=== PATIENT | male | born 1955 | race Caucasian/White ===

== ENCOUNTER 2017-09-04 21:15 | Inpatient (IN) ==
[2017-09-04] MEDS ORDERED: SODIUM CHLORIDE 0.9% 1,000 ML IV STA (22:14)
[2017-09-04] MEDS ORDERED: ONDANSETRON 4 MG/2 ML VIAL IV STA (22:14)
[2017-09-04 23:19] LABS: Basophils % 0.2 % (0.0-0.8); Eosinophils % 0.1 % (0.00-10.9); Hematocrit 35.1 VOL% (42.0-52.0); Hemoglobin 11.2 GM/DL (14.0-18.0); Immature Granulocytes % 0.5 %; Immature Granulocytes Absolute 0.08 #; Lymphocytes # 0.9 10*3/uL (1.4-4.0); Lymphocytes % 5.6 % (21.2-54.2); Mean Corpuscular HGB Conc 31.9 GM/DL (32-36); Mean Corpuscular Hemoglobin 32 PG (27-34); Mean Corpuscular Volume 99.7 FL (87-102); Mean Platelet Volume 10.9 FL (9.6-12.0); Monocytes # 0.9 10*3/uL (0.11-0.8); Monocytes % 5.9 % (1.7-12.7); Neutrophils # 13.3 10*3/uL (1.4-7.4); Neutrophils % 87.7 % (38.7-73.9); Platelet Count 100 T/CUMM (130-400); Red Blood Count 3.52 MC/CUMM (3.8-5.5); White Blood Count 15.1 T/CUMM (4-12)
[2017-09-04] MEDS ORDERED: MORPHINE 4 MG/1 ML VIAL IV STA (23:24)
[2017-09-04 23:40] LABS: Alanine Aminotransferase 41 U/L (16-61); Albumin 3.3 G/DL (3.4-5.0); Alkaline Phosphatase 119 U/L (45-117); Aspartate Amino Transferase 48 U/L (0-37); Blood Urea Nitrogen 22 MG/DL (7-18); Glucose 180 MG/DL (74-106); Osmolality,Calculated 288.3 MOS/KG (273-304); Potassium 3.5 MMOL/L (3.5-5.1); Sodium 141 MMOL/L (136-145); Total Protein 8.2 G/DL (6.4-8.3)
[2017-09-04 23:41] LABS: Lactic Acid 2.4 MMOL/L (0.4-2.0)
[2017-09-05] MEDS ORDERED: SODIUM CHLORIDE 0.9% 1,000 ML IV STA (00:04)
[2017-09-05] MEDS ORDERED: ONDANSETRON 4 MG/2 ML VIAL IV PRN (01:07)
[2017-09-05] MEDS ORDERED: MORPHINE 10 MG/1 ML VIAL IV PRN (01:11)
[2017-09-05] MEDS ORDERED: MORPHINE 4 MG/1 ML VIAL ONE (01:38)
[2017-09-05] MEDS: DEXTROSE 5% LACTATED RINGERS 1,000 ML IV SCH ×2 (02:44→19:12)
[2017-09-05 04:59] LABS: Basophils % 0.2 % (0.0-0.8); Eosinophils % 0.1 % (0.00-10.9); Hematocrit 31.3 VOL% (42.0-52.0); Immature Granulocytes % 0.4 %; Immature Granulocytes Absolute 0.05 #; Lymphocytes # 0.8 10*3/uL (1.4-4.0); Lymphocytes % 6.5 % (21.2-54.2); Mean Corpuscular HGB Conc 31.9 GM/DL (32-36); Mean Corpuscular Hemoglobin 32 PG (27-34); Mean Corpuscular Volume 99.7 FL (87-102); Mean Platelet Volume 11.1 FL (9.6-12.0); Monocytes # 0.8 10*3/uL (0.11-0.8); Monocytes % 6.1 % (1.7-12.7); Neutrophils # 11.3 10*3/uL (1.4-7.4); Neutrophils % 86.7 % (38.7-73.9); Platelet Count 86 T/CUMM (130-400); Red Blood Count 3.14 MC/CUMM (3.8-5.5); Red Cell Distribution Width 15.9 % (9.3-17.3)
[2017-09-05 05:05] LABS: INR 1.3; PT Patient Result 13.3 SECS; Partial Thromboplastin Time 25.6 SECS (0-40)
[2017-09-05 05:22] LABS: Albumin 2.8 G/DL (3.4-5.0); Bilirubin,Total 1.8 MG/DL (0.2-1.0); Calcium 8.3 MG/DL (8.5-10.1); Osmolality,Calculated 293.8 MOS/KG (273-304); Potassium 3.4 MMOL/L (3.5-5.1); Total Protein 6.7 G/DL (6.4-8.3)
[2017-09-05 05:49] LABS: Band Neutrophils 8 % (0-10); Hypochromasia 1+; Lymphocytes 3 % (20-55); Macrocytosis Slight; Segmented Neutrophils 79 % (50-85); Total Cells Counted 100
[2017-09-05 05:50] LABS: Platelet Estimate Decreased
[2017-09-05] MEDS ORDERED: POTASSIUM CHLORIDE RIDER 10 MEQ in PREMIX 1 EACH IV PRN (11:05)
[2017-09-05] MEDS: DEXT 5% NACL 0.45% KCL 40 MEQ 40 MEQ/1,000 ML BAG IV SCH ×2 (11:58→23:03)
[2017-09-05] MEDS ORDERED: POTASSIUM CHLORIDE RIDER 20 MEQ in PREMIX 1 EACH IV PRN (12:00)
[2017-09-06 06:21] LABS: Basophils % 0.3 % (0.0-0.8); Eosinophils # 0.3 10*3/uL (0.0-0.87); Hematocrit 29.1 VOL% (42.0-52.0); Hemoglobin 9.5 GM/DL (14.0-18.0); Immature Granulocytes % 0.5 %; Immature Granulocytes Absolute 0.03 #; Lymphocytes % 14.6 % (21.2-54.2); Mean Corpuscular HGB Conc 32.6 GM/DL (32-36); Mean Corpuscular Hemoglobin 32 PG (27-34); Mean Corpuscular Volume 99.3 FL (87-102); Mean Platelet Volume 10.7 FL (9.6-12.0); Monocytes # 0.6 10*3/uL (0.11-0.8); Monocytes % 8.8 % (1.7-12.7); Neutrophils # 4.7 10*3/uL (1.4-7.4); Neutrophils % 70.8 % (38.7-73.9); Platelet Count 81 T/CUMM (130-400); Red Blood Count 2.93 MC/CUMM (3.8-5.5); White Blood Count 6.6 T/CUMM (4-12)
[2017-09-06 06:45] LABS: Calcium 7.8 MG/DL (8.5-10.1); Osmolality,Calculated 291.8 MOS/KG (273-304); Potassium 3.7 MMOL/L (3.5-5.1)
[2017-09-06 07:03] LABS: Hypochromasia 1+
[2017-09-06 07:04] LABS: Macrocytosis 1+; Platelet Estimate Decreased
[2017-09-06] MEDS: DEXT 5% NACL 0.45% KCL 40 MEQ 40 MEQ/1,000 ML BAG IV SCH (07:10)
[2017-09-06] MEDS ORDERED: HEPARIN LOCK FLUSH 500 UNIT/5 ML SYRINGE IV ONE (15:13)
[2017-09-06 18:05] VITALS: BP 137/70
== END 2017-09-06 18:20 | disposition home or self-care (01) | DRG 389 ==
LOC: N.ED 21:15 → N.EDINP 09-05 01:07 → N.3E 09-05 01:36
PROVIDERS: ADMIT Surgery; ATTEND Surgery

== ENCOUNTER 2018-05-09 15:53 | Inpatient (IN) ==
[2018-05-09 18:20] LABS: Basophils % 0.4 % (0.0-0.8); Eosinophils % 1.5 % (0.00-10.9); Immature Granulocytes % 0.7 %; Immature Granulocytes Absolute 0.02 #; Lymphocytes # 0.5 10*3/uL (1.4-4.0); Lymphocytes % 17.1 % (21.2-54.2); Mean Corpuscular HGB Conc 30.4 GM/DL (32-36); Mean Corpuscular Hemoglobin 31 PG (27-34); Mean Corpuscular Volume 102.4 FL (87-102); Mean Platelet Volume 11.4 FL (9.6-12.0); Monocytes # 0.2 10*3/uL (0.11-0.8); Monocytes % 6.2 % (1.7-12.7); Neutrophils % 74.1 % (38.7-73.9); Red Blood Count 1.67 MC/CUMM (3.8-5.5); Red Cell Distribution Width 21.5 % (9.3-17.3); White Blood Count 2.8 T/CUMM (4-12)
[2018-05-09] MEDS ORDERED: ONDANSETRON 4 MG/2 ML VIAL IV PRN (18:22)
[2018-05-09] MEDS ORDERED: ACETAMINOPHEN 325 MG TABLET PO PRN (18:22)
[2018-05-09 18:24] LABS: Hematocrit 17.1 VOL% (42.0-52.0); Hemoglobin 5.2 GM/DL (14.0-18.0); Platelet Count 79 T/CUMM (130-400)
[2018-05-09] MEDS ORDERED: OCTREOTIDE 100 MCG/ML SYRINGE IV ONE (18:26)
[2018-05-09] MEDS ORDERED: GLUCAGON 1 MG VIAL IM PRN (18:27)
[2018-05-09] MEDS ORDERED: DEXTROSE 50% 25 GM/50 ML SYRINGE IV PRN (18:27)
[2018-05-09] MEDS ORDERED: SODIUM CHLORIDE 0.9% 1,000 ML IV PRN (18:29)
[2018-05-09] MEDS ORDERED: SODIUM CHLORIDE 0.9% 1,000 ML IV SCH (18:30)
[2018-05-09 18:40] LABS: Calcium 7.5 MG/DL (8.5-10.1); Osmolality,Calculated 291.1 MOS/KG (273-304); Potassium 3.6 MMOL/L (3.5-5.1)
[2018-05-09 18:51] LABS: Anisocytosis 1+; Microcytosis 1+
[2018-05-09 18:52] LABS: Hypochromasia 1+; Platelet Estimate Decreased
[2018-05-09] MEDS ORDERED: methylPREDNISolone SOD SUC 125 MG/2 ML VIAL IV ONE (20:49)
[2018-05-09] MEDS ORDERED: diphenhydrAMINE 50 MG/1 ML VIAL IV PRN (20:49)
[2018-05-09] MEDS ORDERED: FUROSEMIDE 40 MG/4 ML VIAL IV SCH (21:30)
[2018-05-09] MEDS: OCTREOTIDE 500 MCG in SODIUM CHLORIDE 0.9% 100 ML IV SCH (21:34)
[2018-05-09] MEDS: PANTOPRAZOLE 40 MG VIAL IV SCH (21:35)
[2018-05-09] MEDS: INSULIN REGULAR 100 UNIT/ML SUBCUT SCH (21:51)
[2018-05-10] MEDS: LEVOTHYROXINE 175 MCG TABLET PO SCH (05:41)
[2018-05-10 06:32] LABS: Eosinophils % 0.4 % (0.00-10.9); Hematocrit 21.3 VOL% (42.0-52.0); Immature Granulocytes % 0.7 %; Immature Granulocytes Absolute 0.02 #; Lymphocytes # 0.4 10*3/uL (1.4-4.0); Lymphocytes % 14.9 % (21.2-54.2); Mean Corpuscular Hemoglobin 30 PG (27-34); Mean Platelet Volume 11.9 FL (9.6-12.0); Monocytes # 0.1 10*3/uL (0.11-0.8); Monocytes % 1.8 % (1.7-12.7); Neutrophils # 2.3 10*3/uL (1.4-7.4); Neutrophils % 82.2 % (38.7-73.9); Red Blood Count 2.13 MC/CUMM (3.8-5.5); White Blood Count 2.8 T/CUMM (4-12)
[2018-05-10 06:34] LABS: Platelet Count 80 T/CUMM (130-400)
[2018-05-10 06:35] LABS: Hemoglobin 6.4 GM/DL (14.0-18.0)
[2018-05-10 06:54] LABS: % Iron Saturation 5.4 % (18-50); Ferritin 52.2 ng/ml (26-388)
[2018-05-10 06:59] LABS: Calcium 7.7 MG/DL (8.5-10.1); Osmolality,Calculated 297.3 MOS/KG (273-304); Thyroid Stimulating Hormone 3.09 uIU/ml (0.358-3.74)
[2018-05-10 07:07] LABS: Platelet Estimate Decreased
[2018-05-10 07:08] LABS: Anisocytosis 2+; Polychromasia Slight
[2018-05-10 07:36] LABS: Sedimentation Rate-Westergren 122 MM/HR (0-20)
[2018-05-10] MEDS: INSULIN REGULAR 100 UNIT/ML SUBCUT SCH ×4 (08:14→20:57)
[2018-05-10] MEDS: OCTREOTIDE 500 MCG in SODIUM CHLORIDE 0.9% 100 ML IV SCH (08:14)
[2018-05-10] MEDS: PANTOPRAZOLE 40 MG VIAL IV SCH ×2 (08:16→20:59)
[2018-05-10 08:49] LABS: Folate 15.3 NG/ML (5.4-24.0); Vitamin B12 880 PG/ML (211-911)
[2018-05-10 09:35] LABS: Hepatitis A Ab IgM Quant 0.13 Index; Hepatitis A Ab IgM Result Negative (Negative); Hepatitis B Core IgM Quant 0.15 Index; Hepatitis B Core IgM Result Negative (Negative); Hepatitis B Surface Ag Quant < 0.10 Index; Hepatitis B Surface Ag Result Negative (Negative); Hepatitis C Virus Ab Quant 0.09 Index; Hepatitis C Virus Ab Result Negative (Negative)
[2018-05-10 09:40] LABS: INR 1.2; PT Patient Result 12.7 SECS
[2018-05-10] MEDS: FUROSEMIDE 40 MG/4 ML VIAL IV SCH ×2 (10:33→18:43)
[2018-05-10 11:06] LABS: Hemoglobin A1 (Alkaline) 97.3 % (96.5-98.5); Hemoglobin A2 (Alkaline) 2.7 % (1.5-3.5)
[2018-05-10 19:56] LABS: Apearance,Urine CLEAR (Clear); Bacteria,Urine Occasional /HPF (Few); Bilirubin,Urine Negative (Negative); Blood, Urine Small mg/dL (Negative); Glucose,Urine (UA) Negative (Negative); Hyaline Casts,Urine 5 /LPF (0-3); Ketones,Urine Negative (Negative); Nitrite,Urine Negative (Negative); Protein,Urine Negative; RBC,Urine 8 /HPF (0-4); Squamous Epithelial Cell,Urine Occasional /HPF (0-10); Urine Color Yellow (Yellow); Urine Specific Gravity 1.011 (1.001-1.035); Urine Urobilinogen < 2.0 EU/DL (0.2-1.0); WBC,Urine 7 /HPF (0-6)
[2018-05-11 02:23] LABS: Hemoglobin 7.7 GM/DL (14.0-18.0)
[2018-05-11 04:41] LABS: Basophils % 0.6 % (0.0-0.8); Eosinophils # 0.1 10*3/uL (0.0-0.87); Eosinophils % 1.5 % (0.00-10.9); Hemoglobin 7.7 GM/DL (14.0-18.0); Immature Granulocytes % 0.4 %; Immature Granulocytes Absolute 0.02 #; Lymphocytes # 0.9 10*3/uL (1.4-4.0); Lymphocytes % 16.8 % (21.2-54.2); Mean Corpuscular HGB Conc 30.8 GM/DL (32-36); Mean Corpuscular Hemoglobin 30 PG (27-34); Mean Corpuscular Volume 96.2 FL (87-102); Mean Platelet Volume 10.3 FL (9.6-12.0); Monocytes # 0.5 10*3/uL (0.11-0.8); Monocytes % 8.7 % (1.7-12.7); Neutrophils # 3.7 10*3/uL (1.4-7.4); Platelet Count 103 T/CUMM (130-400); Red Cell Distribution Width 20.6 % (9.3-17.3); White Blood Count 5.2 T/CUMM (4-12)
[2018-05-11 05:00] LABS: Calcium 7.6 MG/DL (8.5-10.1); Potassium 3.2 MMOL/L (3.5-5.1)
[2018-05-11] MEDS: LEVOTHYROXINE 175 MCG TABLET PO SCH (06:55)
[2018-05-11] MEDS: INSULIN REGULAR 100 UNIT/ML SUBCUT SCH ×4 (07:09→21:48)
[2018-05-11] MEDS ORDERED: PANTOPRAZOLE 40 MG TABLET PO PRN (08:42)
[2018-05-11] MEDS: OLMESARTAN 20 MG TABLET PO SCH (10:02)
[2018-05-11] MEDS: POTASSIUM CHLORIDE 20 MEQ TABLET PO SCH ×3 (10:03→21:03)
[2018-05-11] MEDS: INDAPAMIDE 2.5 MG TABLET PO SCH (10:03)
[2018-05-11] MEDS: INSULIN GLARGINE 100 UNIT/ML SUBCUT SCH (10:04)
[2018-05-11] MEDS: PANTOPRAZOLE 40 MG VIAL IV SCH ×2 (10:05→21:03)
[2018-05-11] MEDS: FUROSEMIDE 40 MG/4 ML VIAL IV SCH (11:12)
[2018-05-11] MEDS ORDERED: AMINOCAPROIC ACID 500 MG TABLET PO SCH (12:30)
[2018-05-11] MEDS: [UNRECOGNIZED DRUG - OTHER] PO SCH (17:28)
[2018-05-11] MEDS: AMINOCAPROIC ACID PO SCH (17:28)
[2018-05-11] MEDS: FUROSEMIDE 80 MG TABLET PO SCH (17:37)
[2018-05-11] MEDS: TERAZOSIN 5 MG CAPSULE PO SCH (21:03)
[2018-05-12] MEDS: [UNRECOGNIZED DRUG - OTHER] PO SCH ×5 (00:04→23:56)
[2018-05-12] MEDS: AMINOCAPROIC ACID PO SCH ×5 (00:04→23:56)
[2018-05-12 04:47] LABS: Basophils % 0.5 % (0.0-0.8); Eosinophils # 0.1 10*3/uL (0.0-0.87); Eosinophils % 2.4 % (0.00-10.9); Hematocrit 26.4 VOL% (42.0-52.0); Hemoglobin 8.2 GM/DL (14.0-18.0); Immature Granulocytes % 0.5 %; Immature Granulocytes Absolute 0.02 #; Lymphocytes # 0.7 10*3/uL (1.4-4.0); Lymphocytes % 18.2 % (21.2-54.2); Mean Corpuscular HGB Conc 31.1 GM/DL (32-36); Mean Corpuscular Hemoglobin 30 PG (27-34); Mean Platelet Volume 10.7 FL (9.6-12.0); Monocytes # 0.3 10*3/uL (0.11-0.8); Monocytes % 9.1 % (1.7-12.7); Neutrophils # 2.6 10*3/uL (1.4-7.4); Neutrophils % 69.3 % (38.7-73.9); Red Blood Count 2.78 MC/CUMM (3.8-5.5); Red Cell Distribution Width 19.6 % (9.3-17.3); White Blood Count 3.7 T/CUMM (4-12)
[2018-05-12 04:50] LABS: Platelet Count 94 T/CUMM (130-400)
[2018-05-12 05:09] LABS: Hypochromasia 1+; Platelet Estimate Decreased
[2018-05-12 05:10] LABS: Ovalocytes Slight
[2018-05-12] MEDS: LEVOTHYROXINE 175 MCG TABLET PO SCH (05:41)
[2018-05-12] MEDS ORDERED: IRON SUCROSE 300 MG in SODIUM CHLORIDE 0.9% 100 ML IV ONE (08:52)
[2018-05-12] MEDS: OLMESARTAN 20 MG TABLET PO SCH (09:02)
[2018-05-12] MEDS: POTASSIUM CHLORIDE 20 MEQ TABLET PO SCH ×3 (09:02→21:02)
[2018-05-12] MEDS: PANTOPRAZOLE 40 MG VIAL IV SCH ×2 (09:03→21:03)
[2018-05-12] MEDS: INSULIN GLARGINE 100 UNIT/ML SUBCUT SCH (09:03)
[2018-05-12] MEDS: INSULIN REGULAR 100 UNIT/ML SUBCUT SCH ×4 (09:03→21:01)
[2018-05-12] MEDS: FUROSEMIDE 80 MG TABLET PO SCH ×2 (09:03→16:15)
[2018-05-12] MEDS: INDAPAMIDE 2.5 MG TABLET PO SCH (09:10)
[2018-05-12] MEDS ORDERED: BISACODYL 5 MG TABLET PO ONE (12:00)
[2018-05-12] MEDS ORDERED: POLYETHYLENE GLYCOL POWDER 255 GM BOTTLE PO ONE (18:00)
[2018-05-12] MEDS ORDERED: MAGNESIUM CITRATE 300 ML BOTTLE PO ONE (21:00)
[2018-05-12] MEDS: TERAZOSIN 5 MG CAPSULE PO SCH (21:02)
[2018-05-13 05:35] LABS: Basophils % 0.6 % (0.0-0.8); Eosinophils # 0.1 10*3/uL (0.0-0.87); Eosinophils % 4.1 % (0.00-10.9); Hematocrit 26.7 VOL% (42.0-52.0); Hemoglobin 8.2 GM/DL (14.0-18.0); Immature Granulocytes % 0.6 %; Immature Granulocytes Absolute 0.02 #; Lymphocytes # 0.7 10*3/uL (1.4-4.0); Lymphocytes % 20.1 % (21.2-54.2); Mean Corpuscular HGB Conc 30.7 GM/DL (32-36); Mean Corpuscular Hemoglobin 30 PG (27-34); Mean Platelet Volume 11.3 FL (9.6-12.0); Monocytes # 0.3 10*3/uL (0.11-0.8); Monocytes % 8.4 % (1.7-12.7); Neutrophils # 2.3 10*3/uL (1.4-7.4); Neutrophils % 66.2 % (38.7-73.9); Red Blood Count 2.78 MC/CUMM (3.8-5.5); Red Cell Distribution Width 19.3 % (9.3-17.3); White Blood Count 3.4 T/CUMM (4-12)
[2018-05-13 05:38] LABS: Platelet Count 90 T/CUMM (130-400)
[2018-05-13 05:41] LABS: INR 1.2; PT Patient Result 13.3 SECS
[2018-05-13] MEDS: LEVOTHYROXINE 175 MCG TABLET PO SCH (05:49)
[2018-05-13 05:53] LABS: Albumin 2.4 G/DL (3.4-5.0); Bilirubin,Total 1.2 MG/DL (0.2-1.0); Calcium 7.8 MG/DL (8.5-10.1); Osmolality,Calculated 288.1 MOS/KG (273-304); Potassium 3.1 MMOL/L (3.5-5.1); Total Protein 6.1 G/DL (6.4-8.3)
[2018-05-13 05:59] LABS: Hypochromasia 1+; Microcytosis 1+
[2018-05-13 06:00] LABS: Ovalocytes Slight; Platelet Estimate Decreased; Target Cells Slight
[2018-05-13] MEDS: [UNRECOGNIZED DRUG - OTHER] PO SCH ×3 (06:16→17:05)
[2018-05-13] MEDS: AMINOCAPROIC ACID PO SCH ×3 (06:16→17:05)
[2018-05-13] MEDS: INSULIN REGULAR 100 UNIT/ML SUBCUT SCH ×4 (08:21→23:21)
[2018-05-13] MEDS: FUROSEMIDE 80 MG TABLET PO SCH ×2 (08:21→17:11)
[2018-05-13] MEDS: INSULIN GLARGINE 100 UNIT/ML SUBCUT SCH (08:22)
[2018-05-13] MEDS: OLMESARTAN 20 MG TABLET PO SCH (08:22)
[2018-05-13] MEDS: POTASSIUM CHLORIDE 20 MEQ TABLET PO SCH ×3 (08:22→21:14)
[2018-05-13] MEDS: INDAPAMIDE 2.5 MG TABLET PO SCH (08:22)
[2018-05-13] MEDS: PANTOPRAZOLE 40 MG VIAL IV SCH ×2 (08:24→21:14)
[2018-05-13] MEDS: SODIUM CHLOR 0.45% KCL 20 MEQ 20 MEQ/1,000 ML BAG IV SCH (08:25)
[2018-05-13] MEDS ORDERED: LIDOCAINE 2% 5 ML VIAL ONE (10:00)
[2018-05-13] MEDS ORDERED: PROPOFOL 200 MG/20 ML VIAL IV ONE (10:00)
[2018-05-13] MEDS: TERAZOSIN 5 MG CAPSULE PO SCH (21:14)
[2018-05-14] MEDS: AMINOCAPROIC ACID PO SCH ×3 (00:42→12:24)
[2018-05-14] MEDS: [UNRECOGNIZED DRUG - OTHER] PO SCH ×3 (00:42→12:24)
[2018-05-14] MEDS: SODIUM CHLOR 0.45% KCL 20 MEQ 20 MEQ/1,000 ML BAG IV SCH (00:43)
[2018-05-14 06:07] LABS: Basophils % 0.7 % (0.0-0.8); Eosinophils # 0.1 10*3/uL (0.0-0.87); Eosinophils % 4.6 % (0.00-10.9); Hematocrit 24.3 VOL% (42.0-52.0); Hemoglobin 7.5 GM/DL (14.0-18.0); Immature Granulocytes % 0.4 %; Immature Granulocytes Absolute 0.01 #; Lymphocytes # 0.7 10*3/uL (1.4-4.0); Lymphocytes % 23.9 % (21.2-54.2); Mean Corpuscular HGB Conc 30.9 GM/DL (32-36); Mean Corpuscular Hemoglobin 30 PG (27-34); Mean Corpuscular Volume 97.2 FL (87-102); Mean Platelet Volume 10.8 FL (9.6-12.0); Monocytes # 0.2 10*3/uL (0.11-0.8); Monocytes % 8.5 % (1.7-12.7); Neutrophils # 1.8 10*3/uL (1.4-7.4); Neutrophils % 61.9 % (38.7-73.9); Platelet Count 82 T/CUMM (130-400); Red Cell Distribution Width 18.6 % (9.3-17.3); White Blood Count 2.8 T/CUMM (4-12)
[2018-05-14 06:23] LABS: Calcium 7.4 MG/DL (8.5-10.1); Osmolality,Calculated 284.4 MOS/KG (273-304); Potassium 3.5 MMOL/L (3.5-5.1)
[2018-05-14 06:28] LABS: Hypochromasia 1+; Microcytosis Slight; Platelet Estimate Decreased
[2018-05-14] MEDS: INSULIN REGULAR 100 UNIT/ML SUBCUT SCH ×3 (07:29→16:18)
[2018-05-14] MEDS: FUROSEMIDE 80 MG TABLET PO SCH ×2 (07:29→16:25)
[2018-05-14] MEDS ORDERED: SODIUM CHLORIDE 0.9% 1,000 ML IV PRN (08:11)
[2018-05-14] MEDS: LEVOTHYROXINE 175 MCG TABLET PO SCH (09:32)
[2018-05-14] MEDS: INSULIN GLARGINE 100 UNIT/ML SUBCUT SCH (09:42)
[2018-05-14] MEDS: OLMESARTAN 20 MG TABLET PO SCH (09:42)
[2018-05-14] MEDS: INDAPAMIDE 2.5 MG TABLET PO SCH (09:42)
[2018-05-14] MEDS: POTASSIUM CHLORIDE 20 MEQ TABLET PO SCH ×2 (09:42→16:25)
[2018-05-14] MEDS ORDERED: LIDOCAINE 2% 5 ML VIAL ONE (10:00)
[2018-05-14] MEDS ORDERED: PROPOFOL 200 MG/20 ML VIAL IV ONE (10:00)
[2018-05-14] MEDS: PANTOPRAZOLE 40 MG VIAL IV SCH (10:29)
[2018-05-14 14:27] LABS: Basophils % 0.6 % (0.0-0.8); Eosinophils # 0.1 10*3/uL (0.0-0.87); Eosinophils % 4.4 % (0.00-10.9); Hematocrit 26.5 VOL% (42.0-52.0); Hemoglobin 8.2 GM/DL (14.0-18.0); Immature Granulocytes % 0.3 %; Immature Granulocytes Absolute 0.01 #; Lymphocytes # 0.6 10*3/uL (1.4-4.0); Lymphocytes % 19.9 % (21.2-54.2); Mean Corpuscular HGB Conc 30.9 GM/DL (32-36); Mean Corpuscular Hemoglobin 30 PG (27-34); Mean Corpuscular Volume 96.7 FL (87-102); Mean Platelet Volume 10.5 FL (9.6-12.0); Monocytes # 0.3 10*3/uL (0.11-0.8); Monocytes % 9.8 % (1.7-12.7); Neutrophils # 2.1 10*3/uL (1.4-7.4); Platelet Count 85 T/CUMM (130-400); Red Blood Count 2.74 MC/CUMM (3.8-5.5); Red Cell Distribution Width 18.6 % (9.3-17.3); White Blood Count 3.2 T/CUMM (4-12)
[2018-05-14 15:50] VITALS: BP 122/44
[2018-05-14] MEDS ORDERED: HEPARIN LOCK FLUSH 500 UNIT/5 ML SYRINGE IV ONE (16:45)
[2018-05-14] MEDS ORDERED: PANTOPRAZOLE 40 MG TABLET PO SCH (21:00)
== END 2018-05-14 17:40 | disposition home or self-care (01) | DRG 378 ==
LOC: N.CC 17:33 → SUATTDRO 17:33 → N.4E 05-11 22:20
PROVIDERS: ADMIT Internal Medicine; ATTEND Hospitalist